=== PATIENT | male | born 1965 | race Caucasian/White ===

== ENCOUNTER 2022-08-13 15:58 | Emergency (ER) | payer OTHER ==
[~2022-08-13] VITALS: Ht 182.9 cm; Wt 96.3 kg
[2022-08-13 17:30] VITALS: BP 128/84
[2022-08-13] MEDS ORDERED: NAPROXEN500 MG PO (17:37)
== END 2022-08-13 17:44 | disposition home or self-care (01) | DRG 563 ==
LOC: ED 15:58
DX: S83.92XA Sprain of unspecified site of left knee, initial encounter (principal); F17.210 Nicotine dependence, cigarettes, uncomplicated; X50.0XXA Overexertion from strenuous movement or load, initial encounter; Y93.89 Activity, other specified; Y92.89 Other specified places as the place of occurrence of the external cause; Y99.0 Civilian activity done for income or pay

== ENCOUNTER 2024-11-16 15:13 | Emergency (ER) | payer SELFPAY ==
[~2024-11-16] VITALS: Ht 182.9 cm; Wt 96.0 kg
[~2024-11-16 15:13] MED LIST: CIPROFLOXACN500 MG PO; KEFLEX500 MG PO; NAPROXEN500 MG PO
[2024-11-16 15:24] VITALS: BP 126/77
== END 2024-11-16 16:10 | disposition left against medical advice (07) | DRG 556 ==
LOC: ED 15:13
DX: M25.562 Pain in left knee (principal); F17.210 Nicotine dependence, cigarettes, uncomplicated; Z53.29 Procedure and treatment not carried out because of patient's decision for other reasons

== ENCOUNTER 2024-11-17 07:56 | Emergency (ER) | payer SELFPAY ==
[~2024-11-17] VITALS: Ht 182.9 cm; Wt 91.0 kg
[2024-11-17 08:02] VITALS: BP 128/71
[2024-11-17 08:15] VITALS: BP 123/86
[2024-11-17 08:30] VITALS: BP 120/81
[2024-11-17 08:47] VITALS: BP 119/78
[2024-11-17 08:50] VITALS: BP 119/78
== END 2024-11-17 08:59 | disposition home or self-care (01) | DRG 566 ==
LOC: ED 07:56
DX: M25.462 Effusion, left knee (principal); F17.210 Nicotine dependence, cigarettes, uncomplicated